=== PATIENT | male | born 1960 | race African-American/Black ===

== ENCOUNTER 2021-02-22 16:07 | Emergency (ER) | payer OTHER ==
[~2021-02-22] VITALS: Ht 170.2 cm; Wt 73.0 kg
[2021-02-22 17:52] VITALS: BP 147/92
[2021-02-22] MEDS ORDERED: HYDROcodone/APAP 5/325MG 1 TAB TABLET PO ONE ×2 (18:00→18:45)
[2021-02-22] MEDS ORDERED: DIPHTH,PERTUSS(ACELL),TET TOX 0.5 ML DISP.SYRIN. VAX IM ONE (18:00)
--- NOTE | 2021-02-22 18:01 | PHYS DOC ---
Past History Past Surgical History: No Surgical History General Adult EDM: Chief Complaint: LACERATION/AVULSION HPI: HPI: " I got a laceration.. the chain saw kicked back and got my finger tip.... were cutting some hard ass oak... " Patient is a 60 year old male who presents with above hx and complaints of laceration and near avulsion of Rt index finger. Pt. has cut through or fracture through the distal tuff of index finger. The avulsion portion of the laceration is very dusky in no apparent capillary refill. Patient's finger pad portion does have circulation and sensation. Entire length of laceration is approximately 3 cm and circles around the finger. Patient does have flexion and extension. Patient is right-hand dominant. Patient does not remember his last tetanus. No history of immunosuppression. No history of recent travel. Moved into the area here in [place] approximately 6 months ago from [facility]. Review of Systems: Review of Systems: Constitutional: Denies fever or chills Eyes: Denies change in visual acuity HENT: Denies nasal congestion or sore throat Respiratory: Denies cough or shortness of breath Cardiovascular: Denies chest pain or edema GI: Denies abdominal pain, nausea, vomiting, bloody stools or diarrhea : Denies dysuria Musculoskeletal: Denies back pain or joint pain. Complains of avulsion laceration to tip of right index finger Integument: Denies rash Neurologic: Denies headache, focal weakness or sensory changes Endocrine: Denies polyuria or polydipsia Lymphatic: Denies swollen glands Psychiatric: Denies depression or anxiety Family History: Family History: Noncontributory to presentation Current Medications: Current Meds: Current Medications Medications (Trade) Dose Ordered Sig/Lakeisha Start Time Stop Time Status Last Admin Dose Admin Acetaminophen/ Hydrocodone Bitart (Lortab 5/325) 1 tab 1X ONCE 02/22/21 18:00 02/22/21 18:01 UNV Allergies: Allergies: Allergies Coded Allergies Type Severity Reaction Last Updated Verified No Known Drug Allergies 02/22/21 No Physical Exam: PE: Constitutional: Moderate acute distress, non-toxic appearance. [] HENT: Normocephalic, atraumatic, bilateral external ears normal, oropharynx moist, no oral exudates, nose normal. White hair Eyes: PERRLA, EOMI, conjunctiva normal, no discharge. [] Neck: Normal range of motion, no tenderness, supple, no stridor. [] Cardiovascular:Heart rate regular rhythm, no murmur [] Lungs & Thorax: Bilateral breath sounds scattered wheezes on auscultation [] Abdomen: Bowel sounds normal, soft, no tenderness, no masses, no pulsatile masses. [] Skin: Warm, dry, no erythema, no rash. Laceration as per HPI Back: No tenderness, no CVA tenderness. [] Extremities: No tenderness, no cyanosis, no clubbing, ROM intact, no edema. [] Neurologic: Alert and oriented X 3, normal motor function, normal sensory function, no focal deficits noted. [] Psychologic: Affect anxious, judgement normal, mood normal. [] Current Patient Data: Vital Signs: Vital Signs Date Time Temp Pulse Resp B/P (MAP) Pulse Ox O2 Delivery O2 Flow Rate FiO2 02/22/21 17:52 98.0 97 16 147/92 (110) 97 Room Air EKG: EKG: [] Radiology/Procedures: Radiology/Procedures: [][place] [address] IMAGING REPORT Signed PATIENT: JEROD TERAN ACCOUNT: [id number] : 1960 LOCATION: ER AGE: 60 SEX: M EXAM STATUS: REG ER ORD. PHYSICIAN: TANA GONZALEZ MD REASON: Right hand laceration with pain, foreign body PROCEDURE: HAND RIGHT 3V XR HAND_RIGHT 3 VIEWS 02/22/2021 6:20 PM INDICATION: Right hand laceration COMPARISON: None available. TECHNIQUE: 3 views of the right hand are provided. FINDINGS/ IMPRESSION: Comminuted fracture of the distal tuft of the second digit. There is laceration of the distal phalanx of the second digit. No septations gas. No definite open fracture. Regional soft tissue are within normal limits. No intrahepatic or extension is identified. No radiopaque foreign density. Electronically signed by: Ruth Palacios MD (02/22/2021 6:38 PM) [facility] DICTATED AND SIGNED BY: RUTH PALACIOS MD DATE: 02/22/21 [id number] CC: TANA GONZALEZ MD; PCP,NO ~MTH0 0 Heart Score: C/O Chest Pain: N/A Risk Factors: Risk Factors: DM, Current or recent (<one month) smoker, HTN, HLP, family history of CAD, obesity. Risk Scores: Score 0 - 3: 2.5% MACE over next 6 weeks - Discharge Home Score 4 - 6: 20.3% MACE over next 6 weeks - Admit for Clinical Observation Score 7 - 10: 72.7% MACE over next 6 weeks - Early Invasive Strategies Course & Med Decision Making: Course & Med Decision Making Pertinent Labs and Imaging studies reviewed. (See chart for details) Procedure note-laceration and fracture cleaning and suture. Patient finger cleaned with soap and water. Betadine applied to finger. Injected finger 2% lidocaine for digital block as well as local injection of laceration site. Patient finger was then scrubbed with a surgical scrub brush under running water and range of motion to remove the debris is much as possible. Reirrigated finger of normal saline. Closed laceration with 4-0 Ethilon x5 simple sutures. Realigned distal tip is much as possible. Antibiotic applied. taped to middle finger . Patient take laceration clean and dry until sutures are out. May wear current dressing for 3 days. Unless it becomes wet or soiled in the dressing must be removed immediately. Sutures out in 10 days. Monitor closely for infection. Take Keflex 500 mg 3 times a day. Tylenol and ibuprofen for pain. Follow-up with primary care. Follow-up work comp. Return if any concerns. [] Hakeem Disclaimer: Hakeem Disclaimer: This electronic medical record was generated, in whole or in part, using a voice recognition dictation system. Departure Departure: Referrals: PCP,NO (PCP) Scripts Cephalexin (KEFLEX) 500 Mg Capsule 500 MG PO TID for laceration and fx for 10 Days, #30 CAP Prov: TANA GONZALEZ MD 02/22/21 Hakeem Disclaimer This chart was dictated in whole or in part using Voice Recognition software in a busy, high-work load, and often noisy Emergency Department environment. It may contain unintended and wholly unrecognized errors or omissions. TANA GONZALEZ MD Feb 22, 2021 18:01
[2021-02-22] MEDS ORDERED: LIDOCAINE 2% 20 ML VIAL. IJ ONE (18:15)
[2021-02-22] MEDS ORDERED: cefTRIAXone IM 1 GM VIAL IM ONE (18:15)
--- NOTE | 2021-02-22 18:40 | RAD ---
XR HAND_RIGHT 3 VIEWS 02/22/2021 6:20 PM INDICATION: Right hand laceration COMPARISON: None available. TECHNIQUE: 3 views of the right hand are provided. FINDINGS/ IMPRESSION: Comminuted fracture of the distal tuft of the second digit. There is laceration of the distal phalanx of the second digit. No septations gas. No definite open fracture. Regional soft tissue are within n ormal limits. No intrahepatic or extension is identified. No radiopaque foreign density. Electronically signed by: Yessy Palacios MD (02/22/2021 6:38 PM) VINOD
[2021-02-22] MEDS ORDERED: NEOMY/BACITR/POLYMYXIN OINT PACKET. TP ONE (18:46)
[2021-02-22] MEDS ORDERED: BACITRACIN/POLYMYXIN B OPHTH OINTMENT 3.5GM TUBE. ONE (18:46)
[2021-02-22] MEDS ORDERED: CEPH500C PO (19:07)
--- NOTE | 2021-02-22 19:37 | RAD ---
XR FINGER(S)_RIGHT 2+VIEWS 02/22/2021 7:07 PM INDICATION: Postreduction COMPARISON: None available. TECHNIQUE: 3 views of the second digit of the right hand are provided. FINDINGS/ IMPRESSION: There is improved alignment of fracture fragments involving the distal phalanx of the first digit. No intra-articular communication. Regional soft tissue swelling is present. Electronically signed by: Yessy Palacios MD (02/22/2021 7:35 PM) DEDRICK
[2021-02-22] MEDS ORDERED: MUPIROCIN 2% TOPICAL OINTMENT 22GM TUBE. TP SCH (21:00)
== END 2021-02-22 19:41 | disposition home or self-care (01) ==
LOC: ER 16:07
DX: S62.630A Displaced fracture of distal phalanx of right index finger, initial encounter for closed fracture (principal); S61.210A Laceration without foreign body of right index finger without damage to nail, initial encounter; W26.8XXA Contact with other sharp object(s), not elsewhere classified, initial encounter; Y93.89 Activity, other specified; Y92.89 Other specified places as the place of occurrence of the external cause; Y99.8 Other external cause status
CPT/HCPCS: 12002; 73130; 73140; 90471; 90715; 96372; 99284; J0696; J2001

== ENCOUNTER 2021-03-04 10:31 | Emergency (ER) | payer OTHER ==
[~2021-03-04] VITALS: Ht 167.6 cm; Wt 72.0 kg
[~2021-03-04 10:31] MED LIST: CEPH500C PO
[2021-03-04 10:43] VITALS: BP 132/77
--- NOTE | 2021-03-04 10:59 | PHYS DOC ---
Past History Past Surgical History: No Surgical History (BETTY HENDRICKS APRN) Alcohol Use: None (BETTY HENDRICKS APRN) General Adult EDM: Chief Complaint: SUTURE/STAPLE REMOVAL HPI: HPI: Patient is a 60-year-old male presents with suture removal. Patient was seen here on 02/22 treated for a fracture to the tip of his finger. Patient was to return in 10 days for suture removal. No signs of infection. Patient is still complaining about swelling to finger and some pain and tingling. Patient denies seeing a hand surgeon. Patient's been taking ibuprofen at home for pain relief. (BETTY HENDRICKS APRN) Review of Systems: Review of Systems: ROS At least 10 ROS systems have been reviewed and are negative except as documented in the HPI. General: Negative except as outlined in HPI above. Skin: Negative except as outlined in HPI above. HEENT: Negative except as outlined in HPI above. Neck: Negative except as outlined in HPI above. Respiratory: Negative except as outlined in HPI above.. Cardiovascular: Negative except as outlined in HPI above. Abdomen: Negative except as outlined in HPI above. : Negative except as outlined in HPI above. Back/MSK: Negative except as outlined in HPI above. Neuro: Negative except as outlined in HPI above. Psych: Negative except as outlined in HPI above. (BETTY HENDRICKS APRN) Allergies: Allergies: Allergies Coded Allergies Type Severity Reaction Last Updated Verified No Known Drug Allergies 02/22/21 No (BETTY HENDRICKS APRN) Physical Exam: PE: Constitutional: Well developed, well nourished, no acute distress, non-toxic appearance. [] HENT: Normocephalic, atraumatic, bilateral external ears normal, oropharynx moist, no oral exudates, nose normal. [] Eyes: PERRLA, EOMI, conjunctiva normal, no discharge. [] Neck: Normal range of motion, no tenderness, supple, no stridor. [] Cardiovascular:Heart rate regular rhythm, no murmur [] Lungs & Thorax: Bilateral breath sounds clear to auscultation [] Abdomen: Bowel sounds normal, soft, no tenderness, no masses, no pulsatile masses. [] Skin: Warm, dry, no erythema, mild swelling to right index finger. No signs of infection Back: No tenderness, no CVA tenderness. [] Extremities: No tenderness, no cyanosis, no clubbing, ROM intact, no edema. Right index fingermild pain, swelling Neurologic: Alert and oriented X 3, normal motor function, normal sensory function, no focal deficits noted. [] Psychologic: Affect normal, judgement normal, mood normal. [] (BETTY HENDRICKS APRN) Current Patient Data: Vital Signs: Vital Signs Date Time Temp Pulse Resp B/P (MAP) Pulse Ox O2 Delivery O2 Flow Rate FiO2 03/04/21 10:43 98.1 86 18 132/77 (95) 100 Room Air (BETTY HENDRICKS APRN) EKG: EKG: [] (BETTY HENDRICKS APRN) Radiology/Procedures: Radiology/Procedures: [] (BETTY HENDRICKS APRN) Heart Score: C/O Chest Pain: No Risk Factors: Risk Factors: DM, Current or recent (<one month) smoker, HTN, HLP, family history of CAD, obesity. Risk Scores: Score 0 - 3: 2.5% MACE over next 6 weeks - Discharge Home Score 4 - 6: 20.3% MACE over next 6 weeks - Admit for Clinical Observation Score 7 - 10: 72.7% MACE over next 6 weeks - Early Invasive Strategies (BETTY HENDRICKS APRN) Course & Med Decision Making: Course & Med Decision Making Pertinent Labs and Imaging studies reviewed. (See chart for details) [] 60-year-old male presents with a suture removal of his right index finger. Patient was seen 10 days ago and treated for a fracture to right index finger. No signs of infection. Patient still reports swelling, pain and tingling to finger and hand. Patient followed up with his PCP but has yet to see a hand specialist. Patient sent home with pain medication until he is able to follow- up with a hand surgeon. Aluminum finger splint placed. Discussed return precautions with patient. (BETTY HENDRICKS APRN) [place] Disclaimer: Hakeem Disclaimer: This electronic medical record was generated, in whole or in part, using a voice recognition dictation system. (BETTY HENDRICKS APRN) Departure Departure: Impression: Primary Impression: Encounter for removal of sutures Disposition: HOME / SELF CARE / HOMELESS Condition: STABLE Referrals: PCP,OZZY (PCP) Patient Instructions: Suture Removal Additional Instructions: You were seen in the emergency room for suture removal. You were still complaining of some pain to that digit. You will continue to have swelling due to having a fracture. It may take 6 to 8 weeks for fracture to heal. Take ibuprofen at home for discomfort for break through pain. I am sending you home with some pain medication as well. I am also giving you a aluminum finger splint. Please wear the finger splint until you are able to follow-up with a hand surgeon for further recommendation. Return to the emergency room if you have worsening symptoms or concerns. [facility] [place] [phone] EMERGENCY DEPARTMENT GENERAL DISCHARGE INSTRUCTIONS Thank you for coming to [facility] (ED) today and trusting us with you care. We trust that you had a positivie experience in our Emergency Department. If you wish to speak to the department management, you may call the director at [phone]. YOUR FOLLOW UP INSTRUCTIONS ARE FOLLOWS: 1. Do you have a private Doctor? If you do not have a private doctor, please ask for a resource list of physicians or clinics that may be able to assist you with follow up care. 2. The Emergency Physician has interpreted your x-rays. The X-Ray specialist will also review them. If there is a change in the findings, you will be notified in 48 hours when at all possible. 3. A lab test or culture has been done, your results will be reviewed and you will be notified if you need a change in treatment. ADDITIONAL INSTRUCTIONS AND INFORMATION: 1. Your care today has been supervised by a physician who is specially trained in emergency care. Many problems require more than one evaluation for a complete diagnosis and treatment. We recommend that you schedule your follow up appointment as recommended to ensure complete treatment of you illness or injury. If you are unable to obtain follow up care and continue to have a problem, or if your condition worsens, we recommend that you return to the ED. 2. We are not able to safely determine your condition over the phone nor are we able to give sound medical advice over the phone. For these safety reasons, if you call for medical advice we will ask you to come to the ED for further evaluation. 3. If you have any questions regarding these discharge instructions please call the ED at [phone]. SAFETY INFORMATION: In the interest of safety, wellness, and injury prevention; we encourage you to wear your sealbelt, if you smoke; quite smoking, and we encourage family to use a protective helmet for bicycling and other sporting events that present an increased risk for head injury. IF YOUR SYMPTOMS WORSEN OR NEW SYMPTOMS DEVELOP, OR YOU HAVE CONCERNS ABOUT YOUR CONDITION; OR IF YOUR CONDITION WORSENS WHILE YOU ARE WAITING FOR YOUR FOLLOW UP APPOINTMENT; EITHER CONTACT YOUR PRIMARY CARE DOCTOR, THE PHYSICIAN WHOSE NAME AND NUMBER YOU WERE GIVEN, OR RETURN TO THE ED IMMEDIATELY. Scripts Hydrocodone Bit/Acetaminophen (HYDROCODONE-APAP 5-325 ) 1 Each Tablet 0.5-1 TAB PO PRN Q6HRS PRN for PAIN for 3 Days, #12 TAB 0 Refills Prov: BETTY HENDRICKS APRN 03/04/21 Attending Signature Attending Signature I have reviewed the PA/BOAT RIGGER's note and plan of care. I was available for consultation as needed during the patient's visit in the emergency department. I agree with the clinical impression, plan, and disposition. (MARGE VERMA DO) BETTY HENDRICKS APRN Mar 04, 2021 10:59 MARGE VERMA DO Mar 05, 2021 02:52
[2021-03-04] MEDS ORDERED: HYDR-2155 PO (11:07)
== END 2021-03-04 11:18 | disposition home or self-care (01) ==
LOC: ER 10:31
DX: S61.210D Laceration without foreign body of right index finger without damage to nail, subsequent encounter (principal); X58.XXXD Exposure to other specified factors, subsequent encounter
CPT/HCPCS: 29130; 99283

== ENCOUNTER 2021-03-12 10:05 | Emergency (ER) | payer OTHER ==
[~2021-03-12] VITALS: Ht 170.2 cm; Wt 69.0 kg
[~2021-03-12 10:05] MED LIST changes: +HYDR-2155 PO
[2021-03-12] MEDS ORDERED: HYDROcodone/APAP 5/325MG 1 TAB TABLET PO ONE (11:00)
[2021-03-12] MEDS ORDERED: HYDR-2155 PO (11:05)
--- NOTE | 2021-03-12 11:07 | PHYS DOC ---
Past History Past Surgical History: No Surgical History (ELSI LOPEZ APRN) Alcohol Use: None (ELSI LOPEZ APRN) General Adult EDM: Chief Complaint: HAND PROBLEM HPI: HPI: Patient is a 60-year-old male who presents to the emergency department for pain control. Patient reports that he was seen in this emergency department on February 22 after cutting his finger with a chainsaw. At that time patient did have a laceration that was sutured in a distal to have fracture of his index finger on his left hand. Laceration was sutured and he did return 10 days later to have the sutures removed. He reports that since that episode he has just had increasing pain. He has been on a round of Keflex and he did receive pain medication. Patient does report swelling to his finger that has been present since the injury, he denies any decreased sensation to his extremity and decreased movement. (ELSI LOPEZ APRN) Review of Systems: Review of Systems: Constitutional: negative unless reported in HPI Eyes: negative unless reported in HPI HENT: negative unless reported in HPI Respiratory: negative unless reported in HPI Cardiovascular: negative unless reported in HPI GI: negative unless reported in HPI : negative unless reported in HPI Musculoskeletal: negative unless reported in HPI Integument: negative unless reported in HPI Neurologic: negative unless reported in HPI Endocrine: negative unless reported in HPI Lymphatic: negative unless reported in HPI Psychiatric: negative unless reported in HPI (ELSI LOPEZ APRN) Current Medications: Current Meds: Current Medications Medications (Trade) Dose Ordered Sig/Lakeisha Start Time Stop Time Status Last Admin Dose Admin Acetaminophen/ Hydrocodone Bitart (Lortab 5/325) 1 tab 1X ONCE 03/12/21 11:00 03/12/21 11:01 (ELSI LOPEZ APRN) Allergies: Allergies: Allergies Coded Allergies Type Severity Reaction Last Updated Verified No Known Drug Allergies 03/12/21 No (ELSI LOPEZ APRN) Physical Exam: PE: Constitutional: Well developed, well nourished, no acute distress, non-toxic appearance. [] HENT: Normocephalic, atraumatic, bilateral external ears normal, oropharynx moist, no oral exudates, nose normal. [] Eyes: PERRL, EOMI, conjunctiva normal, no discharge. [] Neck: Normal range of motion, no stridor Cardiovascular: Normal peripheral perfusion Lungs & Thorax: Normal work of breathing, no tachypnea Abdomen: Soft and flat Skin: Warm, dry, no erythema, no rash. [] Back: Normal range of motion Extremities: No tenderness, no cyanosis, no clubbing, ROM intact, no edema. Lef t second finger: Swelling noted, no redness/warmth or drainage noted, range of motion intact, neuro intact, subungual hemorrhage noted. Neurologic: Alert and oriented X 3, normal motor function, normal sensory function, no focal deficits noted. [] Psychologic: Affect normal, judgement normal, mood normal. [] (ELSI LOPEZ APRN) Current Patient Data: Vital Signs: Vital Signs Date Time Temp Pulse Resp B/P (MAP) Pulse Ox O2 Delivery O2 Flow Rate FiO2 03/12/21 10:20 97.5 90 20 155/93 (113) Room Air (ELSI LOPEZ APRN) EKG: EKG: [] (ELSI LOPEZ APRN) Radiology/Procedures: Radiology/Procedures: [] (ELSI LOPEZ APRN) Heart Score: C/O Chest Pain: N/A Risk Factors: Risk Factors: DM, Current or recent (<one month) smoker, HTN, HLP, family history of CAD, obesity. Risk Scores: Score 0 - 3: 2.5% MACE over next 6 weeks - Discharge Home Score 4 - 6: 20.3% MACE over next 6 weeks - Admit for Clinical Observation Score 7 - 10: 72.7% MACE over next 6 weeks - Early Invasive Strategies (ELSI LOPEZ APRN) Course & Med Decision Making: Course & Med Decision Making Pertinent Labs and Imaging studies reviewed. (See chart for details) Patient presents to the emergency department for left second finger pain and swelling. Patient is neurovascularly intact and range of motion is intact. There are no signs of cellulitis. There are no open wounds and the skin appears to be healing well. Patient does have a subungual hemorrhage and I attempted to drain it but the blood was clotted and there was no drainage. Patient's pain was treated in the emergency department. He was advised to follow-up with orthopedic and a referral was given. He will be discharged home with pain medication. I discussed with patient all findings and diagnostic testing as well as the need to follow-up with PCP for further evaluation and treatment or return to the ER if any new or worsening symptoms. Strict return precautions were also discussed at length. Patient voiced understanding and agreement with the plan. Patient is hemodynamically stable at the time of disposition. (ELSI LOPEZ APRN) Dragon Disclaimer: Dragon Disclaimer: This electronic medical record was generated, in whole or in part, using a voice recognition dictation system. (ELSI LOPEZ APRN) Attending Co-Sign The patient was seen and interviewed as well as examined at the bedside. The chart was reviewed. The case was discussed. Agree with the plan of care. (VICTORINO HARVEY DO) Departure Departure: Impression: Primary Impression: Finger pain Qualified Codes: M79.645 - Pain in left finger(s) Disposition: HOME / SELF CARE / HOMELESS Condition: GOOD Referrals: PCPOZZY (PCP) LEONA BAGLEY II, MD Patient Instructions: Finger Fracture Additional Instructions: You were seen in the emergency department for finger pain. You will be d ischarged home with some pain medication. Take this as directed. This medication may cause drowsiness so do not take when you need to be alert, driving a vehicle or with alcohol. This medication is hydrocodone and Tylenol combination tablet so caution taking any additional Tylenol. Follow-up with orthopedic doctor that was provided for you. Please call them on Sunday to set up a follow-up appointment. Monitor for any signs of infection which include redness, warmth, swelling or drainage. Please return to the emergency department if you develop any of the signs of infection, decreased range of motion, increased swelling, decreased sensation or increased pain. Scripts Hydrocodone Bit/Acetaminophen (HYDROCODONE-APAP 5-325 ) 1 Each Tablet 1 TAB PO PRN Q6HRS PRN for PAIN for 2 Days, #8 TAB 0 Refills Prov: ELSI LOPEZ APRN 03/12/21 ELSI LOPEZ APRN Mar 12, 2021 11:07 VICTORINO HARVEY DO Mar 13, 2021 06:31
[2021-03-12 11:38] VITALS: BP 134/86
== END 2021-03-12 11:32 | disposition home or self-care (01) ==
LOC: ER 10:05
DX: M79.645 Pain in left finger(s) (principal); R22.32 Localized swelling, mass and lump, left upper limb
CPT/HCPCS: 99283

== ENCOUNTER → 2021-03-23 | Outpatient (CLI) | payer MEDICARE ==
[2021-03-12 11:38] VITALS: BP 134/86
--- NOTE | 2021-03-23 15:50 | RAD ---
EXAM: Right second finger, 3 views. HISTORY: Chainsaw injury. COMPARISON: 02/22/2021 FINDINGS: 3 views of the right index finger are obtained. There has been slight interval increase in displacement of comminuted fracture fragments involving the tuft of the second distal phalanx. There is an overlying soft tissue laceration. There is no radiodense foreign body. There is cortical irregu lar be along the ulnar aspect of the base of the third proximal phalanx, possibly due to the sequela of remote injury. IMPRESSION: Slight increased displacement of comminuted fracture fragments involving the tuft of the second distal phalanx. Electronically signed by: Zeynep Soto MD (03/23/2021 3:48 PM) [id number]
== END ==
LOC: RAD 15:02
PROVIDERS: ATTEND Physician Assistant
DX: S62.630A Displaced fracture of distal phalanx of right index finger, initial encounter for closed fracture (principal); X58.XXXA Exposure to other specified factors, initial encounter; Y93.89 Activity, other specified; Y92.89 Other specified places as the place of occurrence of the external cause; Y99.8 Other external cause status
CPT/HCPCS: 73140

== ENCOUNTER 2021-05-15 14:03 | Emergency (ER) | payer MEDICARE ==
[~2021-05-15] VITALS: Ht 170.2 cm; Wt 66.9 kg
[2021-05-15 14:22] VITALS: BP 152/82
[2021-05-15] MEDS ORDERED: OXYC1TAB15 PO (14:59)
--- NOTE | 2021-05-15 15:00 | PHYS DOC ---
Past History Past Surgical History: No Surgical History (BETTY HENDRICKS APRN) Alcohol Use: None (BETTY HENDRICKS APRN) General Adult EDM: Chief Complaint: WOUND CHECK HPI: HPI: Patient is a 60-year-old male who presents with pain to right, index finger. Patient was seen in March after a chainsaw accident. Finger was sutured. Patient states he still has pain and throbbing. Patient has been referred to a hand surgeon but states he cannot get a ride there. Patient is requesting something for pain. She has been taking ibuprofen at home with no relief. Range of motion and sensation are intact. (BETTY HENDRICKS APRN) Review of Systems: Review of Systems: ROS At least 10 ROS systems have been reviewed and are negative except as documented in the HPI. General: Negative except as outlined in HPI above. Skin: Negative except as outlined in HPI above. HEENT: Negative except as outlined in HPI above. Neck: Negative except as outlined in HPI above. Respiratory: Negative except as outlined in HPI above.. Cardiovascular: Negative except as outlined in HPI above. Abdomen: Negative except as outlined in HPI above. : Negative except as outlined in HPI above. Back/MSK: Negative except as outlined in HPI above. Neuro: Negative except as outlined in HPI above. Psych: Negative except as outlined in HPI above. (BETTY HENDRICKS APRN) Allergies: Allergies: Allergies Coded Allergies Type Severity Reaction Last Updated Verified No Known Drug Allergies 03/12/21 No (BETTY HENDRICKS APRN) Physical Exam: PE: Constitutional: Well developed, well nourished, no acute distress, non-toxic appearance. [] HENT: Normocephalic, atraumatic, bilateral external ears normal, oropharynx moist, no oral exudates, nose normal. [] Eyes: PERRLA, EOMI, conjunctiva normal, no discharge. [] Neck: Normal range of motion, no tenderness, supple, no stridor. [] Cardiovascular:Heart rate regular rhythm, no murmur [] Lungs & Thorax: Bilateral breath sounds clear to auscultation [] Abdomen: Bowel sounds normal, soft, no tenderness, no masses, no pulsatile masses. [] Skin: Warm, dry, no erythema, no rash. [] Back: No tenderness, no CVA tenderness. [] Extremities: Right, index finger tenderness, no edema Neurologic: Alert and oriented X 3, normal motor function, normal sensory function, no focal deficits noted. [] Psychologic: Affect normal, judgement normal, mood normal. [] (BETTY HENDRICKS APRN) Current Patient Data: Vital Signs: Vital Signs Date Time Temp Pulse Resp B/P (MAP) Pulse Ox O2 Delivery O2 Flow Rate FiO2 05/15/21 14:22 98.0 98 16 152/82 (105) 98 Room Air (BETTY HENDRICKS APRN) EKG: EKG: [] (BETTY HENDRICKS APRN) Radiology/Procedures: Radiology/Procedures: [] (BETTY HENDRICKS APRN) Heart Score: C/O Chest Pain: No Risk Factors: Risk Factors: DM, Current or recent (<one month) smoker, HTN, HLP, family hi story of CAD, obesity. Risk Scores: Score 0 - 3: 2.5% MACE over next 6 weeks - Discharge Home Score 4 - 6: 20.3% MACE over next 6 weeks - Admit for Clinical Observation Score 7 - 10: 72.7% MACE over next 6 weeks - Early Invasive Strategies (BETTY HENDRICKS APRN) Course & Med Decision Making: Course & Med Decision Making Pertinent Labs and Imaging studies reviewed. (See chart for details) [] 60-year-old male presents with pain to right, index finger. Patient had sutures placed back in March after chainsaw accident. Patient states the pain has continued. Patient was referred to a hand surgeon but is not able to get a ride there to see them. Patient is requesting something for pain today. Sending patient home with prescription for Percocet. Patient needs to make a follow-up appointment with PCP for management. Patient's range of motion and sensation are intact. Cap refill less than 2 seconds. Patient's appreciative and okay with plan (BETTY HENDRICKS APRN) Course & Med Decision Making Did not see or evaluate patient. Did not discuss patient with MISSILEMAN. Generally agree with MISSILEMAN's work-up and disposition per note. (DONNA DEWEY MD) Dragon Disclaimer: Dragon Disclaimer: This electronic medical record was generated, in whole or in part, using a voice recognition dictation system. (BETTY HENDRICKS APRN) Departure Departure: Impression: Primary Impression: Finger pain Qualified Codes: M79.644 - Pain in right finger(s) Disposition: 01 HOME / SELF CARE / HOMELESS Condition: STABLE Referrals: BRAN BLUM (PCP) Patient Instructions: Hand Contusion, [id number] Additional Instructions: You were seen in the emergency room for right, index, finger pain. We have given you pain medication to take at home. You need to follow-up with your PCP and make an appointment with a hand specialist for further management. EMERGENCY DEPARTMENT GENERAL DISCHARGE INSTRUCTIONS Thank you for coming to [facility] (ED) today and trusting us with you care. We trust that you had a positivie experience in our Emergency Department. If you wish to speak to the department management, you may call the director at [phone]. YOUR FOLLOW UP INSTRUCTIONS ARE FOLLOWS: 1. Do you have a private Doctor? If you do not have a private doctor, please ask for a resource list of physicians or clinics that may be able to assist you with follow up care. 2. The Emergency Physician has interpreted your x-rays. The X-Ray specialist will also review them. If there is a change in the findings, you will be notified in 48 hours when at all possible. 3. A lab test or culture has been done, your results will be reviewed and you will be notified if you need a change in treatment. ADDITIONAL INSTRUCTIONS AND INFORMATION: 1. Your care today has been supervised by a physician who is specially trained in emergency care. Many problems require more than one evaluation for a complete diagnosis and treatment. We recommend that you schedule your follow up appointment as recommended to ensure complete treatment of you illness or injury. If you are unable to obtain follow up care and continue to have a problem, or if your condition worsens, we recommend that you return to the ED. 2. We are not able to safely determine your condition over the phone nor are we able to give sound medical advice over the phone. For these safety reasons, if you call for medical advice we will ask you to come to the ED for further evaluation. 3. If you have any questions regarding these discharge instructions please call the ED at [phone]. SAFETY INFORMATION: In the interest of safety, wellness, and injury prevention; we encourage you to wear your sealbelt, if you smoke; quite smoking, and we encourage family to use a protective helmet for bicycling and other sporting events that present an increased risk for head injury. IF YOUR SYMPTOMS WORSEN OR NEW SYMPTOMS DEVELOP, OR YOU HAVE CONCERNS ABOUT YOUR CONDITION; OR IF YOUR CONDITION WORSENS WHILE YOU ARE WAITING FOR YOUR FOLLOW UP APPOINTMENT; EITHER CONTACT YOUR PRIMARY CARE DOCTOR, THE PHYSICIAN WHOSE NAME AND NUMBER YOU WERE GIVEN, OR RETURN TO THE ED IMMEDIATELY. Scripts Oxycodone Hcl/Acetaminophen (PERCOCET 5-325 MG TABLET ) 1 Each Tablet 1 TAB PO PRN BID PRN for PAIN MDD 2 Tablet(s) for 5 Days, #10 TAB 0 Refills Prov: BETTY HENDRICKS APRN 05/15/21 BETTY HENDRICKS APRN May 15, 2021 15:00 DONNA DEWEY MD May 18, 2021 18:18
== END 2021-05-15 15:09 | disposition home or self-care (01) ==
LOC: ER 14:03
DX: M79.644 Pain in right finger(s) (principal)
CPT/HCPCS: 99281

== ENCOUNTER 2021-06-08 06:09 | Emergency (ER) | payer MEDICARE ==
[~2021-06-08] VITALS: Ht 170.2 cm; Wt 66.9 kg
[~2021-06-08 06:09] MED LIST changes: +OXYC1TAB15 PO
[2021-06-08 06:10] VITALS: BP 153/81
--- NOTE | 2021-06-08 07:08 | RAD ---
Study: XR FINGER(S)_RIGHT 2+VIEWS Indication: New-onset pain. Comparison: 03/23/2021 Findings: Partial healing of the previously identified fracture of the index distal phalanx. Fracture clefts re main well visualized. No change in fracture alignment. Mildly irregular overlying soft tissues which would be better assessed clinically. Small marginal lucency at the ulnar aspect of the index middle p halanx head was present previously. No newly seen or erosion or periostitis. Congruent articular surf aces. Maintained joint spaces. Impression: Partial healing of a mostly ununited index distal phalanx fracture. No change in fracture alignment. No newly seen osseous abnormality. Electronically signed by: MIRELLA WELSH MD (06/08/2021 7:06 AM) [facility]
--- NOTE | 2021-06-08 07:14 | PHYS DOC ---
Past History Past Surgical History: No Surgical History Alcohol Use: None General Adult EDM: Chief Complaint: HAND PROBLEM HPI: HPI: 60-year-old male presents with right index finger pain. The patient this finger cut and fractured with a chainsaw few months ago. He continues to have intermittent pain where he has a cramping and numb sensation that goes down into the middle of his hand. He presents today because of this pain made it difficult for him to sleep last night. He denies any new injury. He just does not understand why it still hurts. Review of Systems: Review of Systems: Constitutional: Denies fever or chills Eyes: Denies change in visual acuity HENT: Denies nasal congestion or sore throat Respiratory: Denies cough or shortness of breath Cardiovascular: Denies chest pain or edema GI: Denies abdominal pain, nausea, vomiting, bloody stools or diarrhea : Denies dysuria Musculoskeletal: Right index finger pain Integument: Denies rash Neurologic: Denies headache, focal weakness or sensory changes Endocrine: Denies polyuria or polydipsia Lymphatic: Denies swollen glands Psychiatric: Denies depression or anxiety Allergies: Allergies: Allergies Coded Allergies Type Severity Reaction Last Updated Verified No Known Drug Allergies 03/12/21 No Physical Exam: PE: Constitutional: Well developed, well nourished, no acute distress, non-toxic appearance. [] HENT: Normocephalic, atraumatic, bilateral external ears normal, oropharynx moist, no oral exudates, nose normal. [] Eyes: PERRLA, EOMI, conjunctiva normal, no discharge. [] Neck: Normal range of motion, no tenderness, supple, no stridor. [] Cardiovascular: Heart rate regular rhythm, no murmur [] Lungs & Thorax: Bilateral breath sounds clear to auscultation [] Abdomen: Bowel sounds normal, soft, no tenderness, no masses, no pulsatile masses. [] Skin: Well-healed skin of the distal right finger, partial nail deformity. [] Back: No tenderness, no CVA tenderness. [] Extremities: No tenderness, no cyanosis, no clubbing, ROM intact, no edema. [] Neurologic: Alert and oriented X 3, normal motor function, normal sensory function, no focal deficits noted. [] Psychologic: Affect normal, judgement normal, mood normal. [] Current Patient Data: Vital Signs: Vital Signs Date Time Temp Pulse Resp B/P (MAP) Pulse Ox O2 Delivery O2 Flow Rate FiO2 06/08/21 06:10 97.7 112 18 153/81 (105) 95 Room Air EKG: EKG: [] Radiology/Procedures: Radiology/Procedures: [] Impressions: Study: XR FINGER(S)_RIGHT 2+VIEWS Indication: New-onset pain. Comparison: 03/23/2021 Findings: Partial healing of the previously identified fracture of the index distal phalanx. Fracture clefts remain well visualized. No change in fracture alignment. Mildly irregular overlying soft tissues which would be better assessed clinically. Small marginal lucency at the ulnar aspect of the index middle phalanx head was present previously. No newly seen or erosion or periostitis. Congruent articular surfaces. Maintained joint spaces. Impression: Partial healing of a mostly ununited index distal phalanx fracture. No change in fracture alignment. No newly seen osseous abnormality. Electronically signed by: MIRELLA WELSH MD (06/08/2021 7:06 AM) [facility] DICTATED AND SIGNED BY: MIRELLA WELSH MD DATE: 06/08/21 0703 CC: VICTORINO HARVEY DO; BRAN BLUM PA ~ Heart Score: C/O Chest Pain: N/A Risk Factors: Risk Factors: DM, Current or recent (<one month) smoker, HTN, HLP, family history of CAD, obesity. Risk Scores: Score 0 - 3: 2.5% MACE over next 6 weeks - Discharge Home Score 4 - 6: 20.3% MACE over next 6 weeks - Admit for Clinical Observation Score 7 - 10: 72.7% MACE over next 6 weeks - Early Invasive Strategies Course & Med Decision Making: Course & Med Decision Making Pertinent Labs and Imaging studies reviewed. (See chart for details) The patient's distal phalanx is healing but slow. He still does not have complete union. Given the description of the patient's pain, I think gabapentin may be useful. I will give him 1 [place] 5 and 100 gabapentin in the emergency room. I will discharge him with a prescription for gabapentin. I have advised that he follow-up with a hand specialist. He is stable for discharge at this time. [] Hakeem Disclaimer: Draglulu Disclaimer: This electronic medical record was generated, in whole or in part, using a voice recognition dictation system. Departure Departure: Impression: Primary Impression: Finger pain Disposition: HOME / SELF CARE / HOMELESS Condition: STABLE Referrals: BRAN BLUM (PCP) Patient Instructions: Finger Fracture, [id number], Fingertip Injuries and Amputations Scripts Gabapentin (Neurontin) 100 Mg Capsule 1 CAP PO TID PRN for PAIN for 15 Days, #45 CAP 0 Refills Prov: VICTORINO HARVEY DO 06/08/21 VICTORINO HARVEY DO Jun 08, 2021 07:14
[2021-06-08] MEDS ORDERED: GABAPENTIN 100 MG CAPSULE. PO ONE (07:15)
[2021-06-08] MEDS ORDERED: HYDROcodone/APAP 5/325MG 1 TAB TABLET PO ONE (07:15)
[2021-06-08] MEDS ORDERED: GABA100C81 PO (07:19)
[2021-06-08] MEDS ORDERED: HYDR-2759 PO (07:31)
== END 2021-06-08 07:33 | disposition home or self-care (01) ==
LOC: ER 06:09
DX: M79.644 Pain in right finger(s) (principal)
CPT/HCPCS: 73140; 99283

== ENCOUNTER 2021-06-25 14:44 | Emergency (ER) | payer MEDICARE ==
[~2021-06-25] VITALS: Ht 170.2 cm; Wt 63.9 kg
[~2021-06-25 14:44] MED LIST changes: +GABA100C81 PO; +HYDR-2759 PO
--- NOTE | 2021-06-25 15:12 | PHYS DOC ---
Past History Past Surgical History: No Surgical History Alcohol Use: None General Adult EDM: Chief Complaint: HAND PROBLEM HPI: HPI: Patient is a 60-year-old male here with right index finger pain. This is chronic pain ever since he injured himself many months ago. Sounds like he injured himself on a saw, had an open fracture, his fracture and nail and nailbed were repaired. He has since healed completely. It sounds like he went once to a hand surgeon at [facility]. He has not been know to follow back up with them. No reported new injury or trauma today or recently. No fevers or chills. No redness or swelling. No numbness or tingling. He has been seen here for recurrent and chronic pain. He was given a prescription for gabapentin and [place]. He is out of both of these medications. He refuses to take any nonopioid medications. He reports he is taking ibuprofen at home with no relief. I offered to refill gabapentin, he refused. He has an appointment on Sunday to see a PA to establish primary care. He has no other complaints. No chest pain, dyspnea, dizziness, headache. Review of Systems: Review of Systems: As per HPI Allergies: Allergies: Allergies Coded Allergies Type Severity Reaction Last Updated Verified No Known Drug Allergies 03/12/21 No Physical Exam: PE: Constitutional: Well developed, well nourished, no acute distress, non-toxic appearance. [] HENT: Normocephalic, atraumatic Eyes: Sclera are anicteric Neck: Trachea is midline. Cardiovascular:+2 radial pulse Lungs & Thorax: Respirations are non-labored. Skin: Warm, dry, no erythema, no rash. No open wounds. Extremities: No acute limb deformity. Clubbing is noted of all digits on both hands. No objective discernible tenderness is noted. No warmth erythema. He does not have any open wounds, erythema, fluctuance of his left index finger. His nail appears to be starting to grow back and appears to be healing well. No subungual hematoma. No evidence of felon. No fluctuance or tenderness or tenseness of the finger pad. Full painless active and passive range of motion at the left index finger MCP, PIP and DIP joints. Sensation is grossly intact. Neurologic: Alert and oriented X 3, normal motor function, normal sensory function, no focal deficits noted. [] Psychologic: Affect is bizarre EKG: EKG: [] Radiology/Procedures: Radiology/Procedures: [] Heart Score: C/O Chest Pain: No Risk Factors: Risk Factors: DM, Current or recent (<one month) smoker, HTN, HLP, family history of CAD, obesity. Risk Scores: Score 0 - 3: 2.5% MACE over next 6 weeks - Discharge Home Score 4 - 6: 20.3% MACE over next 6 weeks - Admit for Clinical Observation Score 7 - 10: 72.7% MACE over next 6 weeks - Early Invasive Strategies Course & Med Decision Making: Course & Med Decision Making I offered to order the patient a dose of Toradol or a nonopioid medication alternative. He refused. I kindly explained that I will not be refilling any controlled substances in the ED. He refused to take a prescription for gabapentin. There is no indication that he has any infection. He denies any trauma or injury. There is no visible evidence of trauma on exam. No indicat ion for repeat imaging. No indication for further invasive exams at this time. Return precautions are given. Dragon Disclaimer: DragAuctelia Disclaimer: This electronic medical record was generated, in whole or in part, using a voice recognition dictation system. Departure Departure: Impression: Primary Impression: Finger pain Qualified Codes: M79.644 - Pain in right finger(s) Disposition: HOME / SELF CARE / HOMELESS Condition: STABLE Referrals: BRAN BLUM (PCP) Patient Instructions: Pain of Unknown Etiology (Pain without a known Cause) Additional Instructions: Return to the ER for acute injury or trauma, if you notice any severe redness, severe swelling, temperatures 100.4 or higher or for any other concerns. Please keep your scheduled appointment that you have on Sunday to see a primary care physician. You may take [id number] Tylenol or ibuprofen as needed for pain. ANISA AMADOR DO June 25, 2021 15:12
[2021-06-25 15:28] VITALS: BP 129/88
== END 2021-06-25 15:27 | disposition home or self-care (01) ==
LOC: ER 14:44
DX: M79.644 Pain in right finger(s) (principal); G89.29 Other chronic pain
CPT/HCPCS: 99282